=== PATIENT | male | born 2000 | race Caucasian/White ===

== ENCOUNTER 2019-08-19 02:10 | Emergency (ER) | payer OTHER ==
[~2019-08-19] VITALS: Ht 180.3 cm; Wt 95.3 kg
[2019-08-19 02:10] VITALS: BP 120/70
--- NOTE | 2019-08-19 04:19 | NUR ---
PT TAKEN TO BED 1
[2019-08-19] MEDS ORDERED: levETIRAcetam 500 MG TAB PO ONE (04:50)
--- NOTE | 2019-08-19 05:00 | NUR ---
BIBA C/O SZ X TODAY. PT STATES HE GETS FOCAL SZ AND GETS AT LEAST 3 OF A DAY. A & O X4. DENIES NAY HEAD INJURY OR ORAL TRUAMA. AIRWAY IS PATENT AND CLEAR. STEADY GAIT NOTED.VSS. NO RESP DISTRESS NOTED. PT STATE HE HAS ABD PAIN THAT COMES AND GOES X 2 WEEKS. DENIES ANY ,V,D. ALLERGIES: TYLENOL. PMH: DICKSON, CATHY.
[2019-08-19] MEDS ORDERED: ONDANSETRON 4 MG TAB PO ONE (05:10)
[2019-08-19] MEDS ORDERED: IBUPROFEN 600 MG TAB PO ONE (05:35)
[2019-08-19 06:06] VITALS: BP 120/70
--- NOTE | 2019-08-19 06:06 | NUR ---
Patient discharged with v/s stable. Written and verbal after care instructions given and explained. Patient alert, oriented and verbalized understanding of instructions. Ambulatory with steady gait. All questions addressed prior to discharge. ID band removed. Patient advised to follow up with PMD. Rx of KEMARIAH given. Patient educated on indication of medication including possible reaction and side effects. Opportunity to ask questions provided and answered.
== END 2019-08-19 06:06 | disposition home or self-care (01) ==
LOC: MED 02:10
DX: G40.909 Epilepsy, unspecified, not intractable, without status epilepticus (principal); Z88.6 Allergy status to analgesic agent
CPT/HCPCS: 99284; Q0162